=== PATIENT | male | born 1950 | race Caucasian/White ===

== ENCOUNTER 2022-03-31 14:55 | Emergency (ER) | payer MEDICARE, OTHER ==
[~2022-03-31] VITALS: Ht 170.2 cm; Wt 63.5 kg
[~2022-03-31 14:55] MED LIST: ARIP15TA3 PO; ASPI81TA31 PO; Acetaminophen PO; CARB-96 PO; ESCI20TA PO; FERR325T6 PO; GABA-536 PO; LEVE500T9 PO; LEVO500T2 PO; OMEP20CA15 PO; ROPI1TAB2 PO; TRAZ150T75 PO
[2022-03-31 16:11] LABS: MEAN CORPUSCULAR HEMOGLOBIN 30.1 uug (23.8-33.4); MEAN CORPUSCULAR VOLUME 87.9 fL (73.0-96.2); PLATELET COUNT (AUTO) 257 K/uL (152-348)
[2022-03-31 16:32] LABS: CARBON DIOXIDE 29 mmol/L (21-32); CHLORIDE 103 mmol/L (98-107); CREATININE 2.4 mg/dL (0.6-1.3); GLUCOSE 99 mg/dL (74-106); POTASSIUM 4.1 mmol/L (3.5-5.1); UREA NITROGEN, BLOOD 36 mg/dL (7-18)
[2022-03-31 16:45] LABS: ALANINE AMINOTRANSFERASE 19 U/L (16-63); ALKALINE PHOSPHATASE 62 U/L (50-136); ASPARTATE AMINOTRANSFERASE 8 U/L (15-37); BILIRUBIN,DIRECT 0.2 mg/dL (0.0-0.2); TOTAL PROTEIN, SERUM 6.8 g/dL (6.4-8.2)
--- NOTE | 2022-03-31 17:36 | NUR ---
[place] [facility] [place] Guanako HAWKINS. Taken by ambulance.
[2022-04-01] MEDS ORDERED: REMEDY ESSENTIAL ZINC PASTE 113 GM TP PRN (00:45)
[2022-04-01] MEDS ORDERED: ENOXAPARIN SODIUM 40 MG/0.4 ML DISP.SYRIN SQ SCH (00:45)
[2022-04-01] MEDS ORDERED: IV 1/2NS 1000 ML 1,000 ML IV PRN (00:45)
[2022-04-01] MEDS ORDERED: ONDANSETRON 4 MG/2 ML VIAL IV PRN (00:45)
[2022-04-01] MEDS ORDERED: ACETAMINOPHEN 325 MG TABLET PO PRN (00:45)
[2022-04-01] MEDS ORDERED: MAGNESIUM HYDROXIDE 30 ML LIQUID UDC PO PRN (00:45)
[2022-04-01] MEDS ORDERED: PANTOPRAZOLE SODIUM 40 MG TABLET.DR PO SCH (07:00)
== END 2022-03-31 17:44 ==
LOC: ER 14:55
DX: R53.1 Weakness (principal); G31.83 Neurocognitive disorder with Lewy bodies; F02.80 Dementia in other diseases classified elsewhere, unspecified severity, without behavioral disturbance, psychotic disturbance, mood disturbance, and anxiety; Z87.820 Personal history of traumatic brain injury; K21.9 Gastro-esophageal reflux disease without esophagitis; Z79.899 Other long term (current) drug therapy; Z86.69 Personal history of other diseases of the nervous system and sense organs
CPT/HCPCS: 36415; 71045; 83605; 84484; 85025; 85730; 87040; 93005; A4663

== ENCOUNTER 2022-11-29 12:10 | Emergency (ER) | payer MEDICARE, OTHER ==
[~2022-11-29] VITALS: Ht 172.7 cm; Wt 54.0 kg
--- NOTE | 2022-11-29 12:25 | NUR ---
PATIENT IS AWAKE AND ALERT. PLACED ON A MONITOR
--- NOTE | 2022-11-29 12:45 | NUR ---
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 AWIATING FOR TO ARRIVE, PER [facility] SHE IS ON HER WAY
--- NOTE | 2022-11-29 13:08 | NUR ---
contact information: Svetlana Steven -
[2022-11-29 13:11] LABS: HEMATOCRIT 31.6 % (36.7-47.1); MEAN CORPUSCULAR HEMOGLOBIN 30.1 uug (23.8-33.4); MEAN CORPUSCULAR VOLUME 88.5 fL (73.0-96.2); PLATELET COUNT (AUTO) 250 K/uL (152-348)
[2022-11-29 13:30] LABS: ETHANOL < 3 MG/DL (0-0)
[2022-11-29 13:32] LABS: ALANINE AMINOTRANSFERASE 7 U/L (16-63); ALKALINE PHOSPHATASE 68 U/L (50-136); ASPARTATE AMINOTRANSFERASE 20 U/L (15-37); BILIRUBIN,DIRECT 0.1 mg/dL (0.0-0.2); BILIRUBIN,TOTAL 0.7 mg/dL (0.2-1.0); CARBON DIOXIDE 27 mmol/L (21-32); CHLORIDE 103 mmol/L (98-107); CREATININE 2.5 mg/dL (0.6-1.3); GLUCOSE 109 mg/dL (74-106); POTASSIUM 4.4 mmol/L (3.5-5.1); UREA NITROGEN, BLOOD 29 mg/dL (7-18)
[2022-11-29 14:05] LABS: ACETAMINOPHEN < 2.0 ug/mL (10-30)
--- NOTE | 2022-11-29 14:22 | NUR ---
urine sent to lab
[2022-11-29 15:03] LABS: *BILIRUBIN,URIN NEGATIVE (NEGATIVE); *CLARITY,URINE CLEAR (CLEAR); *COLOR,URINE YELLOW (YELLOW); *KETONES,URINE NEGATIVE (NEGATIVE); *UROBILINOGEN,URINE 0.2 E.U./dl (NORMAL); LEUKOCYTE ESTERASE ,URINE NEGATIVE (NEGATIVE); NITRITE, URINE NEGATIVE (NEGATIVE); PH,URINE 5.5 (5.0-8.0); UGLUCOSE NEGATIVE (NEGATIVE)
[2022-11-29 15:05] LABS: *BLOOD, URINE NEGATIVE (NEGATIVE)
--- NOTE | 2022-11-29 15:22 | NUR ---
I called patients to notify that doctor will be discharging home. She stated she will pick him up in one hour
--- NOTE | 2022-11-29 16:45 | NUR ---
PATIENTS RELATIVE HERE TO DRIVE HIM HOME. I GAVE HER ALL HIS LAB AND IMAGING REPORTS PER , EVELYN, REQUEST.
--- NOTE | 2022-11-29 17:17 | NUR ---
DC and follow up instructions given and explained to family who state they understand all instructions
[2022-11-29 17:18] VITALS: BP 128/73
== END 2022-11-29 17:19 | disposition home or self-care (01) ==
LOC: MERGE 12:10 → ER 12:10
DX: R45.1 Restlessness and agitation (principal); F03.90 Unspecified dementia, unspecified severity, without behavioral disturbance, psychotic disturbance, mood disturbance, and anxiety; N18.9 Chronic kidney disease, unspecified; Z79.899 Other long term (current) drug therapy
CPT/HCPCS: 36415; 70450; 71045; 84484; 85025; 93005; A4663; G0480

== ENCOUNTER 2023-08-13 20:40 | Inpatient (IN) | payer MEDICARE, MEDICAID ==
[~2023-08-13] VITALS: Ht 175.3 cm; Wt 53.0 kg
[~2023-08-13 20:40] MED LIST changes: +ARIP15TA3 GT; -ARIP15TA3 PO; +CARB-96 GT; -CARB-96 PO; +ESCI20TA GT; -ESCI20TA PO; +FERR325T6 GT; -FERR325T6 PO; +LEVE500T9 GT; -LEVE500T9 PO; +OMEP20CA15 GT; -OMEP20CA15 PO; +TRAZ150T75 GT; -TRAZ150T75 PO
[2023-08-13] MEDS ORDERED: VALP250C3 GT (22:00)
[2023-08-13] MEDS ORDERED: ASPI81TA31 GT (22:00)
[2023-08-13] MEDS ORDERED: ROPI8TAB3 GT (22:00)
[2023-08-13 22:52] LABS: HEMOGLOBIN 10.6 g/dL (12.5-16.3); MEAN CORPUSCULAR HEMOGLOBIN 29.9 uug (23.8-33.4); RED BLOOD CELL COUNT(AUTO) 3.56 MIL/uL (4.06-5.63); WHITE BLOOD COUNT (AUTO) 5.7 K/uL (3.6-10.2)
[2023-08-13 23:05] LABS: BASOPHILS % (AUTO) 0.5 % (0.0-2.0); DIFFERENTIAL COMMENT 0; EOSINOPHILS # (AUTO) 0.1 K/uL (0.0-0.7); EOSINOPHILS % (AUTO) 2.4 % (0.0-7.0); HEMATOCRIT 31.9 % (36.7-47.1); LYMPHOCYTES # (AUTO) 1.2 K/uL (0.8-4.8); LYMPHOCYTES % (AUTO) 21.4 % (20.5-51.5); MEAN CORPUSCULAR HGB CONC 33 g/dL (32.5-36.3); MEAN CORPUSCULAR VOLUME 89.7 fL (73.0-96.2); MONOCYTES # (AUTO) 0.5 K/uL (0.1-1.30); MONOCYTES % (AUTO) 8.4 % (0.0-11.0); NEUTROPHILS # (AUTO) 3.8 K/uL (1.8-8.9); NEUTROPHILS % (AUTO) 67.3 % (38.5-71.5); PLATELET COUNT (AUTO) 195 K/uL (152-348)
[2023-08-13 23:07] LABS: CALCIUM 9.2 mg/dL (8.5-10.1); CARBON DIOXIDE 27 mmol/L (21-32); CHLORIDE 104 mmol/L (98-107); CREATININE 2.4 mg/dL (0.6-1.3); GLUCOSE 97 mg/dL (74-106); POTASSIUM 4.4 mmol/L (3.5-5.1); SODIUM SERUM 137 mmol/L (136-145); UREA NITROGEN, BLOOD 45 mg/dL (7-18)
[2023-08-13 23:13] LABS: ALANINE AMINOTRANSFERASE 27 U/L (16-63); ALBUMIN 3.3 g/dL (3.4-5.0); ALKALINE PHOSPHATASE 45 U/L (50-136); ASPARTATE AMINOTRANSFERASE 9 U/L (15-37); BILIRUBIN,TOTAL 0.5 mg/dL (0.2-1.0); TOTAL PROTEIN, SERUM 6.4 g/dL (6.4-8.2)
[2023-08-14] VITALS (8 sets, daily range): BP systolic 117–184; BP diastolic 63–81; TEMP 97.8–98.2; O2SAT 99–100
[2023-08-14] MEDS ORDERED: ONDANSETRON 4 MG/2 ML VIAL IV PRN (02:00)
[2023-08-14] MEDS ORDERED: ACETAMINOPHEN 650 MG SUPP.RECT RC PRN (02:00)
[2023-08-14] MEDS ORDERED: MORPHINE SULFATE 2 MG/1 ML DISP.SYRIN IV PRN (02:00)
[2023-08-14 06:44] LABS: BASOPHILS % (AUTO) 0.5 % (0.0-2.0); EOSINOPHILS # (AUTO) 0.2 K/uL (0.0-0.7); EOSINOPHILS % (AUTO) 2.9 % (0.0-7.0); HEMATOCRIT 34.3 % (36.7-47.1); HEMOGLOBIN 11.6 g/dL (12.5-16.3); LYMPHOCYTES # (AUTO) 1.2 K/uL (0.8-4.8); LYMPHOCYTES % (AUTO) 21.2 % (20.5-51.5); MEAN CORPUSCULAR HEMOGLOBIN 30.3 uug (23.8-33.4); MEAN CORPUSCULAR HGB CONC 34 g/dL (32.5-36.3); MEAN CORPUSCULAR VOLUME 89.1 fL (73.0-96.2); MONOCYTES # (AUTO) 0.4 K/uL (0.1-1.30); MONOCYTES % (AUTO) 7.6 % (0.0-11.0); NEUTROPHILS # (AUTO) 3.8 K/uL (1.8-8.9); NEUTROPHILS % (AUTO) 67.8 % (38.5-71.5); PLATELET COUNT (AUTO) 224 K/uL (152-348); RED BLOOD CELL COUNT(AUTO) 3.85 MIL/uL (4.06-5.63); RED CELL DISTRIBUTION WIDTH 15.9 % (12.1-16.2); WHITE BLOOD COUNT (AUTO) 5.6 K/uL (3.6-10.2)
[2023-08-14 07:01] LABS: IRON, SERUM 54 ug/dL (50-175); SODIUM SERUM 140 mmol/L (136-145)
[2023-08-14 07:02] LABS: ALANINE AMINOTRANSFERASE 37 U/L (16-63); ALBUMIN 3.5 g/dL (3.4-5.0); ALKALINE PHOSPHATASE 53 U/L (50-136); ASPARTATE AMINOTRANSFERASE 17 U/L (15-37); BILIRUBIN,TOTAL 0.8 mg/dL (0.2-1.0); CALCIUM 9.1 mg/dL (8.5-10.1); CARBON DIOXIDE 29 mmol/L (21-32); CHLORIDE 103 mmol/L (98-107); CREATININE 2.1 mg/dL (0.6-1.3); DIFFERENTIAL COMMENT 1; GLUCOSE 94 mg/dL (74-106); MAGNESIUM 2.2 mg/dL (1.8-2.4); PHOSPHOROUS 3.5 mg/dL (2.5-4.9); POTASSIUM 3.9 mmol/L (3.5-5.1); UREA NITROGEN, BLOOD 41 mg/dL (7-18)
[2023-08-14] MEDS: PANTOPRAZOLE SODIUM 40 MG VIAL IV SCH (09:28)
[2023-08-14] MEDS: IV D5/ 0.9% NACL 1,000 ML IV PRN (10:03)
[2023-08-14] MEDS: levETIRAcetam IV 500 MG in IV DEXTROSE 5% 100 ML IV SCH ×2 (10:05→20:12)
[2023-08-14] MEDS ORDERED: DIATR MEGLU/DIATRIZOATE SODIUM 30 ML BOTTLE ONE (12:29)
[2023-08-14] MEDS ORDERED: CARB1TAB21 PO (14:55)
[2023-08-14] MEDS ORDERED: TRAZ-257 PO (14:56)
[2023-08-14] MEDS ORDERED: ATOR40TA PO (14:58)
[2023-08-14] MEDS: hydrALAZINE HCL 20 MG/1 ML VIAL IV PRN (22:45)
[2023-08-15 05:34] VITALS: BP 143/65; TEMP 98.2; O2SAT 99
[2023-08-15 07:07] LABS: BASOPHILS % (AUTO) 0.4 % (0.0-2.0); EOSINOPHILS # (AUTO) 0.1 K/uL (0.0-0.7); EOSINOPHILS % (AUTO) 1.5 % (0.0-7.0); HEMATOCRIT 36.8 % (36.7-47.1); HEMOGLOBIN 12.2 g/dL (12.5-16.3); LYMPHOCYTES # (AUTO) 0.9 K/uL (0.8-4.8); MEAN CORPUSCULAR HEMOGLOBIN 29.7 uug (23.8-33.4); MEAN CORPUSCULAR HGB CONC 33 g/dL (32.5-36.3); MEAN CORPUSCULAR VOLUME 89.2 fL (73.0-96.2); MONOCYTES # (AUTO) 0.4 K/uL (0.1-1.30); MONOCYTES % (AUTO) 7.3 % (0.0-11.0); NEUTROPHILS # (AUTO) 4.5 K/uL (1.8-8.9); NEUTROPHILS % (AUTO) 75.8 % (38.5-71.5); PLATELET COUNT (AUTO) 228 K/uL (152-348); RED BLOOD CELL COUNT(AUTO) 4.12 MIL/uL (4.06-5.63)
[2023-08-15] MEDS: IV D5/ 0.9% NACL 1,000 ML IV PRN (07:22)
[2023-08-15 07:25] LABS: DIFFERENTIAL COMMENT 1
[2023-08-15 07:40] LABS: ALANINE AMINOTRANSFERASE 43 U/L (16-63); ALBUMIN 3.6 g/dL (3.4-5.0); ALKALINE PHOSPHATASE 62 U/L (50-136); ASPARTATE AMINOTRANSFERASE 18 U/L (15-37); BILIRUBIN,TOTAL 1.2 mg/dL (0.2-1.0); CALCIUM 9.2 mg/dL (8.5-10.1); CARBON DIOXIDE 28 mmol/L (21-32); CHLORIDE 106 mmol/L (98-107); CREATININE 1.8 mg/dL (0.6-1.3); GLUCOSE 110 mg/dL (74-106); MAGNESIUM 2.2 mg/dL (1.8-2.4); PHOSPHOROUS 3.1 mg/dL (2.5-4.9); POTASSIUM 4.1 mmol/L (3.5-5.1); SODIUM SERUM 143 mmol/L (136-145); TOTAL PROTEIN, SERUM 7.3 g/dL (6.4-8.2); UREA NITROGEN, BLOOD 29 mg/dL (7-18)
[2023-08-15 08:06] LABS: CREATINE KINASE, TOTAL 102 U/L (39-308)
[2023-08-15] MEDS: PANTOPRAZOLE SODIUM 40 MG VIAL IV SCH (08:20)
[2023-08-15] MEDS: levETIRAcetam IV 500 MG in IV DEXTROSE 5% 100 ML IV SCH ×2 (08:20→20:45)
[2023-08-15 11:12] VITALS: BP 103/67; TEMP 98.3; O2SAT 100
[2023-08-15 16:00] VITALS: BP 96/66; TEMP 98.5; O2SAT 99
[2023-08-15 20:20] VITALS: BP 171/85; TEMP 97.6; O2SAT 95
[2023-08-15] MEDS: hydrALAZINE HCL 20 MG/1 ML VIAL IV PRN (20:50)
[2023-08-16] MEDS: IV D5/ 0.9% NACL 1,000 ML IV PRN (02:13)
[2023-08-16 04:20] VITALS: BP 170/78; TEMP 98.5; O2SAT 100
[2023-08-16 04:38] VITALS: BP 170/78
[2023-08-16] MEDS: hydrALAZINE HCL 20 MG/1 ML VIAL IV PRN (04:38)
[2023-08-16 06:47] LABS: BASOPHILS % (AUTO) 0.3 % (0.0-2.0); EOSINOPHILS # (AUTO) 0.2 K/uL (0.0-0.7); EOSINOPHILS % (AUTO) 3.9 % (0.0-7.0); HEMATOCRIT 36.7 % (36.7-47.1); HEMOGLOBIN 12.3 g/dL (12.5-16.3); LYMPHOCYTES # (AUTO) 1.5 K/uL (0.8-4.8); LYMPHOCYTES % (AUTO) 24.7 % (20.5-51.5); MEAN CORPUSCULAR HGB CONC 34 g/dL (32.5-36.3); MEAN CORPUSCULAR VOLUME 89.2 fL (73.0-96.2); MONOCYTES # (AUTO) 0.5 K/uL (0.1-1.30); MONOCYTES % (AUTO) 8.7 % (0.0-11.0); NEUTROPHILS # (AUTO) 3.8 K/uL (1.8-8.9); NEUTROPHILS % (AUTO) 62.4 % (38.5-71.5); PLATELET COUNT (AUTO) 216 K/uL (152-348); RED BLOOD CELL COUNT(AUTO) 4.11 MIL/uL (4.06-5.63); RED CELL DISTRIBUTION WIDTH 15.9 % (12.1-16.2); WHITE BLOOD COUNT (AUTO) 6.1 K/uL (3.6-10.2)
[2023-08-16 07:04] LABS: DIFFERENTIAL COMMENT 1
[2023-08-16 08:06] LABS: A/G RATIO 1.3 (0.7-1.7); ALBUMIN 3.8 g/dL (2.9-4.4); ALPHA-1-GLOBULIN 0.2 g/dL (0.0-0.4); ALPHA-2-GLOBULIN 0.8 g/dL (0.4-1.0); GAMMA GLOBULIN 0.9 g/dL (0.4-1.8); GLOBULIN, TOTAL 2.9 g/dL (2.2-3.9); M-SPIKE Not Observed g/dL (Not Observed)
[2023-08-16 08:36] LABS: CALCIUM 9.2 mg/dL (8.5-10.1); CARBON DIOXIDE 23 mmol/L (21-32); CHLORIDE 107 mmol/L (98-107); CREATININE 1.7 mg/dL (0.6-1.3); GLUCOSE 108 mg/dL (74-106); MAGNESIUM 1.8 mg/dL (1.8-2.4); PHOSPHOROUS 3.2 mg/dL (2.5-4.9); POTASSIUM 4.2 mmol/L (3.5-5.1); SODIUM SERUM 142 mmol/L (136-145); UREA NITROGEN, BLOOD 21 mg/dL (7-18)
[2023-08-16] MEDS: PANTOPRAZOLE SODIUM 40 MG VIAL IV SCH (09:43)
[2023-08-16] MEDS: levETIRAcetam IV 500 MG in IV DEXTROSE 5% 100 ML IV SCH (09:44)
[2023-08-16 11:06] LABS: PTH, INTACT 36 pg/mL (15-65)
[2023-08-16 11:43] VITALS: TEMP 97.5
[2023-08-16] MEDS ORDERED: ACETAMINOPHEN 325 MG TABLET PO PRN (12:30)
[2023-08-16 15:23] VITALS: TEMP 97.1
== END 2023-08-16 17:30 | disposition home health service (06) | DRG 393 ==
LOC: ER 20:43 → MEDSURG3 22:10
PROVIDERS: ADMIT Internal Medicine; ATTEND Student in an Organized Health Care Education/Training Program
PROC: 0D20XUZ Change Feeding Device in Upper Intestinal Tract, External Approach (ICD-10-PCS; principal; 2023-08-15)
DX: K94.23 Gastrostomy malfunction (principal); N17.0 Acute kidney failure with tubular necrosis; D68.59 Other primary thrombophilia; E78.5 Hyperlipidemia, unspecified; G40.909 Epilepsy, unspecified, not intractable, without status epilepticus; Z79.899 Other long term (current) drug therapy; D64.9 Anemia, unspecified; L30.8 Other specified dermatitis; N18.9 Chronic kidney disease, unspecified; K21.9 Gastro-esophageal reflux disease without esophagitis; Z87.820 Personal history of traumatic brain injury; Z87.11 Personal history of peptic ulcer disease; Z87.828 Personal history of other (healed) physical injury and trauma; I12.9 Hypertensive chronic kidney disease with stage 1 through stage 4 chronic kidney disease, or unspecified chronic kidney disease; Z86.73 Personal history of transient ischemic attack (TIA), and cerebral infarction without residual deficits; G20.C Parkinsonism, unspecified; F02.80 Dementia in other diseases classified elsewhere, unspecified severity, without behavioral disturbance, psychotic disturbance, mood disturbance, and anxiety
CPT/HCPCS: 36415; 74018; 76770; 83550; 83735; 83970; 84100; 84155; 84165; 85025; 85610; A4606; A4663; C9113; G0378; J0360; J1953; J2270; J7042; Q9963

== ENCOUNTER 2025-09-19 14:04 | Inpatient (IN) | payer MEDICARE, OTHER ==
[~2025-09-19] VITALS: Ht 170.2 cm; Wt 46.3 kg
[~2025-09-19 14:04] MED LIST changes: -ARIP15TA3 GT; +ASPI81TA31 GT; -ASPI81TA31 PO; +ATOR40TA PO; -Acetaminophen PO; -CARB-96 GT; +CARB1TAB33 PO; -GABA-536 PO; -LEVO500T2 PO; -ROPI1TAB2 PO; +ROPI8TAB3 GT; +TRAZ-257 PO; -TRAZ150T75 GT; +VALP250C3 GT
[2025-09-19] MEDS ORDERED: DEXL60CA3 PO (14:20)
[2025-09-19] MEDS ORDERED: AMLO2.5T2 GT (14:20)
[2025-09-19] MEDS ORDERED: LEVE750T4 GT (14:20)
[2025-09-19] MEDS ORDERED: CARB1TAB33 PO (14:20)
[2025-09-19] MEDS ORDERED: QUET25TA GT (14:20)
[2025-09-19] MEDS ORDERED: ACET-3752 GT (14:20)
[2025-09-19] MEDS ORDERED: ASPI-495 PO (14:20)
[2025-09-19] MEDS ORDERED: FERR15DR23 PO (14:20)
[2025-09-19] MEDS ORDERED: VALP250S4 GT (14:20)
[2025-09-19] MEDS ORDERED: HYDR-5156 GT (14:22)
[2025-09-19] MEDS ORDERED: HYDR-3972 GT (14:22)
[2025-09-19] MEDS ORDERED: LINA145C GT (14:22)
[2025-09-19] MEDS: IV NS 1000 ML 1,000 ML IV ONE (14:39)
[2025-09-19 14:43] LABS: PLATELET COUNT (AUTO) 200 K/uL (152-348); RED BLOOD CELL COUNT(AUTO) 3.45 MIL/uL (4.06-5.63); RED CELL DISTRIBUTION WIDTH 16.6 % (12.1-16.2); WHITE BLOOD COUNT (AUTO) 4.8 K/uL (3.6-10.2)
[2025-09-19 14:50] LABS: CREATININE 2.3 mg/dL (0.6-1.3); SODIUM SERUM 142 mmol/L (136-145); UREA NITROGEN, BLOOD 37 mg/dL (7-18)
[2025-09-19 14:55] LABS: VALPROIC ACID 6 ug/mL (50-100)
[2025-09-19] MEDS ORDERED: VALPROATE SODIUM 500 MG/5 ML VIAL IV ONE ×2 (16:45→22:04)
[2025-09-19] MEDS: VALPROATE SODIUM 500 MG/5 ML VIAL IV ONE (16:56)
[2025-09-19 16:57] LABS: *BILIRUBIN,URIN NEGATIVE (NEGATIVE); *BLOOD, URINE 1+ (NEGATIVE); *CLARITY,URINE CLEAR (CLEAR); *COLOR,URINE YELLOW (YELLOW); *KETONES,URINE NEGATIVE (NEGATIVE); *PROTEIN,URINE NEGATIVE (NEGATIVE); *UROBILINOGEN,URINE 0.2 E.U./dl (NORMAL); LEUKOCYTE ESTERASE ,URINE NEGATIVE (NEGATIVE); NITRITE, URINE NEGATIVE (NEGATIVE); UGLUCOSE NEGATIVE (NEGATIVE)
[2025-09-19 17:00] VITALS: BP 126/71
[2025-09-19 20:00] VITALS: BP 134/51; TEMP 96.6; O2SAT 99
[2025-09-19] MEDS ORDERED: ONDANSETRON 4 MG/2 ML VIAL IV PRN (20:30)
[2025-09-19] MEDS ORDERED: MAGNESIUM HYDROXIDE 30 ML LIQUID UDC PO PRN (20:30)
[2025-09-19] MEDS ORDERED: REMEDY ESSENTIAL ZINC PASTE 113 GM TP PRN (20:30)
[2025-09-19] MEDS ORDERED: ACETAMINOPHEN 325 MG TABLET-SA PATIENTS-PAIN ONLY PO PRN (20:30)
[2025-09-19] MEDS ORDERED: ENOXAPARIN SODIUM 40 MG/0.4 ML DISP.SYRIN SQ SCH (20:30)
[2025-09-19] MEDS: ENOXAPARIN SODIUM 30 MG/0.3 ML DISP.SYRIN SUBCUT SCH (21:17)
[2025-09-19] MEDS: ATORVASTATIN 40 MG TABLET PO SCH (21:23)
[2025-09-19] MEDS: ZOLPIDEM 5 MG TABLET PO PRN (21:23)
[2025-09-19] MEDS: VALPROATE SODIUM IV 500 MG in IV DEXTROSE 5% 100 ML IV SCH (22:47)
[2025-09-19] MEDS: LORAZEPAM 2 MG/1 ML VIAL IV PRN (23:42)
[2025-09-20] VITALS (8 sets, daily range): BP systolic 122–177; BP diastolic 64–86; TEMP 97.6–98.6; O2SAT 95–99
[2025-09-20] MEDS ORDERED: VALPROATE SODIUM 500 MG/5 ML VIAL IV ONE (04:33)
[2025-09-20] MEDS: PANTOPRAZOLE SODIUM 40 MG TABLET.DR PO SCH (06:04)
[2025-09-20 07:39] LABS: PLATELET COUNT (AUTO) 206 K/uL (152-348); RED BLOOD CELL COUNT(AUTO) 3.99 MIL/uL (4.06-5.63); RED CELL DISTRIBUTION WIDTH 16.6 % (12.1-16.2); WHITE BLOOD COUNT (AUTO) 5.9 K/uL (3.6-10.2)
[2025-09-20 07:59] LABS: CREATININE 1.7 mg/dL (0.6-1.3); SODIUM SERUM 140 mmol/L (136-145); UREA NITROGEN, BLOOD 33 mg/dL (7-18); VALPROIC ACID 86 ug/mL (50-100)
[2025-09-20] MEDS: HYDROCODONE/APAP 5-325MG TABLET PO SCH (09:00)
[2025-09-20] MEDS ORDERED: CARB1TAB33 GT (10:03)
[2025-09-20] MEDS ORDERED: PREG-233 GT (10:12)
[2025-09-20] MEDS ORDERED: PANT40TA2 GT (10:14)
[2025-09-20] MEDS ORDERED: PREGABALIN 50 MG CAPSULE GT PRN (10:30)
[2025-09-20] MEDS ORDERED: AMLODIPINE 2.5 MG TABLET GT PRN (10:30)
[2025-09-20] MEDS: FERROUS SULFATE 300 MG/5 ML LIQUID UDC GT SCH (12:23)
[2025-09-20] MEDS: ESCITALOPRAM OXALATE 10 MG TABLET PO SCH (12:23)
[2025-09-20] MEDS: QUETIAPINE FUMARATE 25 MG TABLET GT SCH (12:24)
[2025-09-20] MEDS ORDERED: HYDROCODONE/APAP 5-325MG TABLET PO PRN (13:30)
[2025-09-20] MEDS: CARBIDOPA/LEVODOPA 25-100MG TABLET GT SCH (17:20)
[2025-09-20] MEDS: VALPROATE SODIUM IV 500 MG in IV DEXTROSE 5% 100 ML IV SCH (17:52)
[2025-09-20 18:51] LABS: *BILIRUBIN,URIN NEGATIVE (NEGATIVE); *BLOOD, URINE 1+ (NEGATIVE); *CLARITY,URINE CLEAR (CLEAR); *COLOR,URINE LIGHT YELLOW (YELLOW); *KETONES,URINE NEGATIVE (NEGATIVE); *PROTEIN,URINE NEGATIVE (NEGATIVE); *UROBILINOGEN,URINE 0.2 E.U./dl (NORMAL); LEUKOCYTE ESTERASE ,URINE NEGATIVE (NEGATIVE); NITRITE, URINE NEGATIVE (NEGATIVE); UGLUCOSE NEGATIVE (NEGATIVE)
[2025-09-20 19:05] LABS: *CREATININE,URINE 29.6 mg/dL (30-125); *SODIUM RNDM,URINE 67.0 mmol/L (40-220); *URINE TOTAL PROTEIN RANDOM 16.2 mg/dL (<150/24HR)
[2025-09-20 20:35] LABS: SQUAMOUS EPITHELIAL CELL,UR FEW /HPF (NONE SEEN)
[2025-09-21] MEDS: PANTOPRAZOLE ORAL SUSPENSION 40 MG SUSPDR.PKT GT SCH (06:30)
[2025-09-21] MEDS ORDERED: AMLODIPINE 2.5 MG TABLET GT PRN (06:33)
[2025-09-21 08:21] VITALS: BP 166/77; TEMP 97.7; O2SAT 98
[2025-09-21] MEDS ORDERED: QUETIAPINE FUMARATE 25 MG TABLET GT SCH (09:00)
[2025-09-21] MEDS ORDERED: FERROUS SULFATE 300 MG/5 ML LIQUID UDC GT SCH (09:00)
[2025-09-21] MEDS ORDERED: ASPIRIN 81 MG TAB.CHEW GT SCH (09:00)
[2025-09-21 12:00] VITALS: BP 121/59; TEMP 98; O2SAT 97
[2025-09-21] MEDS: ASPIRIN 81 MG TAB.CHEW GT SCH (12:48)
[2025-09-21 15:20] VITALS: BP 94/41; O2SAT 98
[2025-09-21 16:00] VITALS: BP 117/51; TEMP 98; O2SAT 98
[2025-09-21 19:17] VITALS: BP 106/42; TEMP 97.3; O2SAT 98
[2025-09-21 20:25] LABS: PLATELET COUNT (AUTO) 218 K/uL (152-348); RED BLOOD CELL COUNT(AUTO) 3.68 MIL/uL (4.06-5.63); RED CELL DISTRIBUTION WIDTH 15.9 % (12.1-16.2); WHITE BLOOD COUNT (AUTO) 3.7 K/uL (3.6-10.2)
[2025-09-21 20:37] LABS: ASPARTATE AMINOTRANSFERASE 17 U/L (15-37); CREATINE KINASE, TOTAL 241 U/L (39-308); CREATININE 2.1 mg/dL (0.6-1.3); SODIUM SERUM 140 mmol/L (136-145); TOTAL PROTEIN, SERUM 6.6 g/dL (6.4-8.2); UREA NITROGEN, BLOOD 38 mg/dL (7-18)
[2025-09-21] MEDS: VALPROIC ACID 250 MG/5 ML LIQUID UDC PO SCH (22:40)
[2025-09-21 23:47] VITALS: BP 124/53; TEMP 98; O2SAT 98
[2025-09-22] MEDS: ACETAMINOPHEN 325 MG TABLET PO PRN (00:54)
[2025-09-22 05:34] VITALS: BP 137/52; TEMP 97.1; O2SAT 99
[2025-09-22 08:00] VITALS: BP 144/63; TEMP 97.6; O2SAT 99
[2025-09-22 09:38] LABS: PLATELET COUNT (AUTO) 236 K/uL (152-348); RED BLOOD CELL COUNT(AUTO) 4.21 MIL/uL (4.06-5.63); RED CELL DISTRIBUTION WIDTH 15.8 % (12.1-16.2); WHITE BLOOD COUNT (AUTO) 3.7 K/uL (3.6-10.2)
[2025-09-22 10:03] LABS: ASPARTATE AMINOTRANSFERASE 18 U/L (15-37); CREATININE 2.1 mg/dL (0.6-1.3); SODIUM SERUM 143 mmol/L (136-145); TOTAL PROTEIN, SERUM 7.5 g/dL (6.4-8.2); UREA NITROGEN, BLOOD 40 mg/dL (7-18)
[2025-09-22 12:00] VITALS: BP 107/54; TEMP 97.8; O2SAT 99
[2025-09-22 16:00] VITALS: BP 132/62; TEMP 98.8; O2SAT 99
[2025-09-22] MEDS ORDERED: VALP250S22 PO (16:35)
[2025-09-22] MEDS ORDERED: ENOX30DI SUBCUT (16:35)
[2025-09-22] MEDS ORDERED: MENT113O TP (16:35)
[2025-09-22] MEDS ORDERED: LEVE100S GT (16:35)
[2025-09-22] MEDS ORDERED: ZOLP5TAB2 PO (16:35)
[2025-09-23 06:07] LABS: PTH, INTACT 31 pg/mL (15-65)
[2025-09-25 09:07] LABS: A/G RATIO 1.1 (0.7-1.7); BETA GLOBULIN 1.0 g/dL (0.7-1.3); GLOBULIN, TOTAL 2.9 g/dL (2.2-3.9); M-SPIKE Not Observed g/dL (Not Observed); PROTEIN, TOTAL 6.1 g/dL (6.0-8.5)
== END 2025-09-22 18:21 | DRG 100 ==
LOC: ER 14:04 → TELE3 18:14
PROVIDERS: ADMIT Student in an Organized Health Care Education/Training Program; ATTEND Student in an Organized Health Care Education/Training Program
DX: G40.909 Epilepsy, unspecified, not intractable, without status epilepticus (principal); N17.0 Acute kidney failure with tubular necrosis; I12.0 Hypertensive chronic kidney disease with stage 5 chronic kidney disease or end stage renal disease; D68.59 Other primary thrombophilia; G20.C Parkinsonism, unspecified; R13.10 Dysphagia, unspecified; G93.89 Other specified disorders of brain; F02.80 Dementia in other diseases classified elsewhere, unspecified severity, without behavioral disturbance, psychotic disturbance, mood disturbance, and anxiety; D64.9 Anemia, unspecified; Z43.1 Encounter for attention to gastrostomy; S06.9XAS Unspecified intracranial injury with loss of consciousness status unknown, sequela; X58.XXXS Exposure to other specified factors, sequela; L57.0 Actinic keratosis; Z87.81 Personal history of (healed) traumatic fracture; Z79.82 Long term (current) use of aspirin; Z79.899 Other long term (current) drug therapy; Z87.11 Personal history of peptic ulcer disease; Z74.09 Other reduced mobility; Z93.1 Gastrostomy status; E78.5 Hyperlipidemia, unspecified; N18.9 Chronic kidney disease, unspecified
CPT/HCPCS: 36415; 70450; 71045; 76770; 80164; 80299; 83735; 83970; 84100; 84155; 84165; 84300; 85025; 93005; A6213; G0378; J1650; J2060; J3490

== ENCOUNTER 2025-09-22 12:49 | Inpatient (IN) | payer MEDICARE, OTHER ==
[~2025-09-22] VITALS: Ht 170.2 cm; Wt 70.3 kg
[~2025-09-22 12:49] MED LIST changes: +ACET-3752 GT; +AMLO2.5T2 GT; +CARB1TAB33 GT; -CARB1TAB33 PO; +HYDR-3972 GT; +HYDR-5156 GT; -LEVE500T9 GT; +LEVE750T4 GT; +LINA145C GT; -OMEP20CA15 GT; +PANT40TA2 GT; +PREG-233 GT; +QUET25TA GT; -TRAZ-257 PO; -VALP250C3 GT; +VALP250S4 GT
[2025-09-22 13:59] VITALS: BP 107/54; TEMP 97.8
[2025-09-22 14:52] VITALS: BP 107/54; TEMP 97.8
[2025-09-22] MEDS ORDERED: LEVE100S GT (16:35)
[2025-09-22] MEDS ORDERED: MENT113O TP (16:35)
[2025-09-22] MEDS ORDERED: VALP250S22 PO (16:35)
[2025-09-22] MEDS ORDERED: ZOLP5TAB2 PO (16:35)
[2025-09-22] MEDS ORDERED: ENOX30DI SUBCUT (16:35)
[2025-09-22] MEDS ORDERED: CALMOSEPTINE 113 GM OINTMENT TP PRN (19:15)
[2025-09-22] MEDS ORDERED: PREGABALIN 50 MG CAPSULE GT PRN (19:15)
[2025-09-22] MEDS: ATORVASTATIN 40 MG TABLET PO SCH (20:26)
[2025-09-22 20:42] VITALS: BP 143/69; TEMP 97.5; O2SAT 100
[2025-09-22] MEDS: ENOXAPARIN SODIUM 30 MG/0.3 ML DISP.SYRIN SUBCUT SCH (20:45)
[2025-09-22] MEDS: VALPROIC ACID 250 MG/5 ML LIQUID UDC PO SCH (20:52)
[2025-09-22] MEDS: ZOLPIDEM 5 MG TABLET PO PRN (21:39)
[2025-09-23] MEDS ORDERED: REMEDY ESSENTIAL ZINC PASTE 113 GM TP PRN (04:30)
[2025-09-23 05:01] VITALS: BP 165/54; TEMP 97.8; O2SAT 99
[2025-09-23] MEDS: PANTOPRAZOLE ORAL SUSPENSION 40 MG SUSPDR.PKT GT SCH (06:30)
[2025-09-23] MEDS ORDERED: PANTOPRAZOLE SODIUM 40 MG TABLET.DR PO SCH (07:00)
[2025-09-23 07:55] VITALS: BP 149/90; TEMP 97.7; O2SAT 96
[2025-09-23] MEDS ORDERED: ASPIRIN 81 MG TAB.CHEW GT SCH (09:00)
[2025-09-23] MEDS: QUETIAPINE FUMARATE 25 MG TABLET GT SCH (09:25)
[2025-09-23] MEDS: CARBIDOPA/LEVODOPA 25-100MG TABLET GT SCH (09:25)
[2025-09-23] MEDS: ESCITALOPRAM OXALATE 10 MG TABLET GT SCH (09:25)
[2025-09-23] MEDS: ASPIRIN 81 MG TAB.CHEW GT SCH (10:12)
[2025-09-23 13:01] VITALS: BP 96/49; O2SAT 96
[2025-09-23 16:17] VITALS: BP 135/58; TEMP 97.8; O2SAT 100
[2025-09-23] MEDS: ACETAMINOPHEN 325 MG TABLET PO PRN (16:32)
[2025-09-23 19:55] VITALS: BP 118/48; TEMP 97.9; O2SAT 99
[2025-09-24 04:46] VITALS: BP 174/66; TEMP 97.5; O2SAT 100
[2025-09-24 05:45] VITALS: BP 149/68; TEMP 97.5; O2SAT 100
[2025-09-24 06:15] LABS: PLATELET COUNT (AUTO) 198 K/uL (152-348); RED BLOOD CELL COUNT(AUTO) 4.20 MIL/uL (4.06-5.63); RED CELL DISTRIBUTION WIDTH 15.8 % (12.1-16.2); WHITE BLOOD COUNT (AUTO) 2.8 K/uL (3.6-10.2)
[2025-09-24 06:26] LABS: ASPARTATE AMINOTRANSFERASE 14 U/L (15-37); CREATININE 2.1 mg/dL (0.6-1.3); SODIUM SERUM 141 mmol/L (136-145); TOTAL PROTEIN, SERUM 7.0 g/dL (6.4-8.2); UREA NITROGEN, BLOOD 49 mg/dL (7-18)
[2025-09-24 06:41] LABS: EOSINOPHILS % (MANUAL) 6 % (0-8); LYMPHOCYTES % (MANUAL) 21 % (20-40); MONOCYTES % (MANUAL) 16 % (2-10); NEUTROPHILS % (MANUAL) 57 % (42-75); PLATELET ESTIMATE ADEQUATE
[2025-09-24 07:31] VITALS: BP 157/61; TEMP 97.6; O2SAT 100
[2025-09-24 15:57] VITALS: BP 111/57; TEMP 97.7; O2SAT 98
[2025-09-24 20:00] VITALS: BP 144/55; TEMP 97.5; O2SAT 99
[2025-09-25 05:00] VITALS: BP 146/70; TEMP 97.8; O2SAT 98
[2025-09-25 09:15] VITALS: BP 133/71; TEMP 97.9; O2SAT 98
[2025-09-25] MEDS ORDERED: PREGABALIN 50 MG CAPSULE PO PRN (10:30)
[2025-09-25 11:08] VITALS: BP 100/62; TEMP 98.8; O2SAT 98
[2025-09-25 14:55] VITALS: BP 130/43; TEMP 97.9; O2SAT 100
[2025-09-25] MEDS: CARBIDOPA/LEVODOPA 25-100MG TABLET PO SCH (17:57)
[2025-09-25 19:30] VITALS: BP 116/56; TEMP 97.6; O2SAT 99
[2025-09-26 05:30] VITALS: BP 146/72; TEMP 97.3; O2SAT 100
[2025-09-26] MEDS: PANTOPRAZOLE ORAL SUSPENSION 40 MG SUSPDR.PKT PO SCH (06:28)
[2025-09-26 07:51] VITALS: BP 147/66; TEMP 97.5; O2SAT 99
[2025-09-26] MEDS: ESCITALOPRAM OXALATE 10 MG TABLET PO SCH (09:01)
[2025-09-26] MEDS: QUETIAPINE FUMARATE 25 MG TABLET PO SCH (09:02)
[2025-09-26 11:14] VITALS: BP 123/58; TEMP 97.4; O2SAT 95
[2025-09-26 15:41] VITALS: BP 136/52; TEMP 97.9; O2SAT 99
[2025-09-26 19:30] VITALS: BP 144/62; TEMP 97.4; O2SAT 99
[2025-09-27] MEDS: PANTOPRAZOLE SODIUM 40 MG TABLET.DR PO SCH (06:18)
[2025-09-27 08:00] VITALS: BP 155/78; TEMP 97.7; O2SAT 100
[2025-09-27 09:04] VITALS: BP 155/72; TEMP 97.7; O2SAT 100
[2025-09-27] MEDS: CLOBETASOL PROPIONATE 0.05% CREAM 15 GM TUBE TOP SCH (09:32)
[2025-09-27 11:36] LABS: PLATELET COUNT (AUTO) 203 K/uL (152-348); RED BLOOD CELL COUNT(AUTO) 3.75 MIL/uL (4.06-5.63); RED CELL DISTRIBUTION WIDTH 15.7 % (12.1-16.2); WHITE BLOOD COUNT (AUTO) 3.9 K/uL (3.6-10.2)
[2025-09-27 11:50] LABS: ASPARTATE AMINOTRANSFERASE 11 U/L (15-37); CREATININE 2.2 mg/dL (0.6-1.3); SODIUM SERUM 140 mmol/L (136-145); TOTAL PROTEIN, SERUM 6.7 g/dL (6.4-8.2); UREA NITROGEN, BLOOD 53 mg/dL (7-18)
[2025-09-27 16:15] VITALS: BP 124/51; TEMP 97.6; O2SAT 100
[2025-09-27 20:02] VITALS: BP 132/56; TEMP 97.3; O2SAT 96
[2025-09-28 06:00] VITALS: BP 157/64; TEMP 97.5; O2SAT 100
[2025-09-28 07:47] VITALS: BP 163/64; TEMP 97.6; O2SAT 100
[2025-09-28] MEDS: ASPIRIN 81 MG TAB.CHEW PO SCH (10:08)
[2025-09-28 16:00] VITALS: BP 103/82; TEMP 97.9; O2SAT 98
[2025-09-28 21:23] VITALS: BP 114/47; TEMP 98; O2SAT 96
[2025-09-29 06:12] VITALS: BP 159/61; TEMP 97.4; O2SAT 99
[2025-09-29 07:49] VITALS: BP 175/92; TEMP 97.7; O2SAT 100
[2025-09-29 16:00] VITALS: BP 162/87; TEMP 97.6; O2SAT 98
[2025-09-29] MEDS: QUETIAPINE FUMARATE 25 MG TABLET PO SCH (18:37)
[2025-09-29 19:25] VITALS: BP 156/72; TEMP 97.4; O2SAT 99
[2025-09-30 07:59] VITALS: BP 151/56; TEMP 97.7; O2SAT 98
[2025-09-30 16:01] VITALS: BP 157/61; TEMP 98; O2SAT 100
[2025-09-30 19:49] VITALS: BP 144/62; TEMP 97.6; O2SAT 100
[2025-10-01 07:53] VITALS: BP 139/52; TEMP 97.7; O2SAT 100
[2025-10-01 16:00] VITALS: BP 172/78; TEMP 97.6; O2SAT 100
[2025-10-01] MEDS: LOSARTAN POTASSIUM 25 MG TABLET PO SCH (16:31)
[2025-10-01 20:00] VITALS: BP 139/63; TEMP 97.7; O2SAT 98
[2025-10-02 06:00] VITALS: BP 166/75; TEMP 97.8; O2SAT 100
[2025-10-02 06:54] LABS: PLATELET COUNT (AUTO) 249 K/uL (152-348); RED BLOOD CELL COUNT(AUTO) 3.79 MIL/uL (4.06-5.63); RED CELL DISTRIBUTION WIDTH 15.3 % (12.1-16.2); WHITE BLOOD COUNT (AUTO) 5.2 K/uL (3.6-10.2)
[2025-10-02 07:18] LABS: ASPARTATE AMINOTRANSFERASE 8 U/L (15-37); CREATININE 1.8 mg/dL (0.6-1.3); SODIUM SERUM 143 mmol/L (136-145); TOTAL PROTEIN, SERUM 6.5 g/dL (6.4-8.2); UREA NITROGEN, BLOOD 40 mg/dL (7-18)
[2025-10-02 08:00] VITALS: BP 135/72; TEMP 97.5; O2SAT 96
[2025-10-02 15:17] VITALS: BP 141/64; TEMP 97.7; O2SAT 98
[2025-10-02 17:09] VITALS: BP 123/60; TEMP 98.5; O2SAT 100
[2025-10-02 20:00] VITALS: BP 130/56; TEMP 98.5; O2SAT 99
[2025-10-03 06:00] VITALS: BP 140/60; TEMP 97.7; O2SAT 100
[2025-10-03 09:21] VITALS: BP 126/64; TEMP 98.1; O2SAT 100
[2025-10-03 16:33] VITALS: BP 142/58; TEMP 97.6; O2SAT 100
[2025-10-03 20:33] VITALS: BP 96/57; TEMP 98.5; O2SAT 100
[2025-10-04 06:47] VITALS: BP 133/55; TEMP 98.3; O2SAT 99
[2025-10-04 07:50] VITALS: BP 108/60; TEMP 97.2; O2SAT 100
[2025-10-04 15:58] VITALS: BP 131/51; TEMP 97.6; O2SAT 98
[2025-10-04 22:00] VITALS: BP 103/52; TEMP 97.2; O2SAT 98
[2025-10-05 06:35] VITALS: BP 143/68; TEMP 98; O2SAT 100
[2025-10-05 08:00] VITALS: BP 194/67; TEMP 97.5; O2SAT 100
[2025-10-05 17:00] VITALS: BP 106/46; TEMP 97.5; O2SAT 99
== END 2025-10-05 18:18 | disposition home health service (06) | DRG 100 ==
LOC: MEDSURG3 12:49 → UNDOADMIN 12:49
PROVIDERS: ADMIT Physical Medicine & Rehabilitation Pain Medicine; ATTEND Physical Medicine & Rehabilitation Pain Medicine
DX: G40.909 Epilepsy, unspecified, not intractable, without status epilepticus (principal); N17.0 Acute kidney failure with tubular necrosis; D68.59 Other primary thrombophilia; G20.A1 Parkinson's disease without dyskinesia, without mention of fluctuations; G93.89 Other specified disorders of brain; R13.10 Dysphagia, unspecified; D64.9 Anemia, unspecified; F02.80 Dementia in other diseases classified elsewhere, unspecified severity, without behavioral disturbance, psychotic disturbance, mood disturbance, and anxiety; N18.9 Chronic kidney disease, unspecified; I12.9 Hypertensive chronic kidney disease with stage 1 through stage 4 chronic kidney disease, or unspecified chronic kidney disease; R53.1 Weakness; Z86.73 Personal history of transient ischemic attack (TIA), and cerebral infarction without residual deficits; E78.5 Hyperlipidemia, unspecified; E87.5 Hyperkalemia; L30.9 Dermatitis, unspecified; Z87.11 Personal history of peptic ulcer disease; Z87.820 Personal history of traumatic brain injury; K21.9 Gastro-esophageal reflux disease without esophagitis; Z91.048 Other nonmedicinal substance allergy status
CPT/HCPCS: 36415; 70030-TC; 83735; 84100; 85025; 97535-GO-CO; A4663; J1650